=== PATIENT | male | born 1975 | race African-American/Black ===

== ENCOUNTER 2018-09-29 14:02 | Emergency (ER) | payer MEDICAID ==
[~2018-09-29] VITALS: Ht 190.5 cm; Wt 81.0 kg
[2018-09-29 14:24] VITALS: BP 169/91
== END 2018-09-29 21:16 | disposition left against medical advice (07) ==
LOC: ER 14:12
DX: Z53.21 Procedure and treatment not carried out due to patient leaving prior to being seen by health care provider (principal)

== ENCOUNTER 2018-10-05 08:21 | Emergency (ER) | payer MEDICAID ==
[~2018-10-05] VITALS: Ht 190.5 cm; Wt 77.0 kg
[2018-10-05] MEDS ORDERED: FAMOTIDINE 20MG TABLET PO ONE (10:45)
[2018-10-05] MEDS ORDERED: PREDNISONE 20MG TABLET PO ONE (10:45)
[2018-10-05 11:07] VITALS: BP 160/74
== END 2018-10-05 11:09 | disposition home or self-care (01) ==
LOC: ER 08:21
DX: R21 Rash and other nonspecific skin eruption (principal)
CPT/HCPCS: 99283; J7512